=== PATIENT | male | born 1940 | race Caucasian/White ===

== ENCOUNTER → 2017-02-06 | Outpatient (CLI) | payer MEDICARE ==
[~2017-02-06] MED LIST: 24 HOUR ALLER15.8 ML; AMLODIPINE BESYL5 MG PO; ASPIRIN81 M1 PO; ASPIRIN81 M2 PO; BACTRIM DS TABL1 TA1; CARAFATE1 G PO; CLARITIN10 M2 PO; CLARITIN10 MG PO; COLACE CLEAR50 MG PO; DIABETIC MEDS; GLUCOPHAGE XR500 MG PO; JANUVIA PO; LANTUS SOLOSTAR3 ML; LISINOPRIL PO; LISINOPRIL5 MG PO; LOPRESSOR PO; MIRALAX119 GM; NITROQUICK0.4 MG SL; NOVOLOG100 U/M2; PLAVIX PO; PYRIDIUM; TYLOX1 CAP 5/50; VICODIN 5/500 T1 TAB PO; VITAMIN E400 UNI1 PO; ZOCOR PO
[2017-02-06 10:54] LABS: BASOPHIL# 0.1 X10e3 (0-0.3); BASOPHIL% 0.8 % (0-2.5); EOSINOPHIL# 0.2 X10e3 (0-0.7); EOSINOPHIL% 2.5 % (0.0-7.0); HEMATOCRIT 43.3 % (38.0-50.0); HEMOGLOBIN 14.3 gm/dL (13.0-16.0); LYMPHOCYTE# 1.9 X10e3 (1.0-3.5); LYMPHOCYTE% 22.8 % (17.0-45.0); MEAN CELL VOLUME 88.4 FL (83-96); MEAN CORPUSCULAR HEMOGLOBIN 29.2 PG (28-34); MEAN PLATELET VOLUME 9.5 FL (6.5-11.5); MONOCYTE# 0.9 X10e3 (0-1.0); MONOCYTE% 10.5 % (3.0-12.0); NEUTROPHIL# 5.4 X10e3 (1.5-7.1); NEUTROPHIL% 63.4 % (40-75); PLATELET COUNT 203 X10e3 (140-420); RED BLOOD COUNT 4.91 X10e (3.90-5.60); RED CELL DISTRIBUTION WIDTH 14.5 % (11.0-15.5); WHITE BLOOD COUNT 8.5 X10e3 (4.0-10.5)
[2017-02-06 10:57] LABS: DIFF IND NO
[2017-02-06 11:12] LABS: ALBUMIN SERUM 4.4 g/dL (3.5-5.0); BILIRUBIN,TOTAL 0.8 mg/dL (0.2-2.0); BUN/CREATININE RATIO 27.77; CALCIUM SERUM 9.9 mg/dL (8.4-10.2); CREATININE SERUM 0.9 mg/dL (0.6-1.4); GLOM FILT RATE Estimated 82.7 mL/min (>60); POTASSIUM 4.9 mmol/L (3.5-5.1)
[2017-02-06 12:01] LABS: THYROID STIMULATING HORMONE 3.08 uIU/ml (0.34-5.60)
[2017-02-06 15:33] LABS: FREE THYROXIN (T4) 0.77 ng/dL (0.58-1.64)
[2017-02-09 08:28] LABS: ANTI THYROGLOBULIN AB <1 IU/mL (<=1); THYROID PEROXIDASE AB (TPO) <1 IU/mL (<9)
[2017-02-09 08:55] LABS: THYROGLOBULIN W/O ANTI TGB 3.8 ng/mL (2.8-40.9)
== END | disposition home or self-care (01) ==
LOC: SLAB 10:24
PROVIDERS: Specialist
DX: I10 Essential (primary) hypertension (principal); E78.5 Hyperlipidemia, unspecified; G62.9 Polyneuropathy, unspecified; E11.65 Type 2 diabetes mellitus with hyperglycemia; E55.9 Vitamin D deficiency, unspecified; Z79.4 Long term (current) use of insulin; Z95.5 Presence of coronary angioplasty implant and graft
CPT/HCPCS: 36415; 80053; 80061; 82043; 82306; 83036; 84432; 84439; 84443; 84681; 85025; 86376; 86800